=== PATIENT | female | born 1990 | race Caucasian/White ===

== ENCOUNTER → 2017-01-03 | Outpatient (CLI) | payer BC ==
[2017-01-03 13:51] LABS: Basophils % (A) 1 %; CHCM 33.8; Eosinophils # (A) 0.1 k/uL (0-0.7); Eosinophils % (A) 1 %; HCT 42.2 % (34.0-46.0); HDW 2.72; Luc # (Auto) 0.08; Luc % (Auto) 1; Lymphocytes # (A) 1.6 k/uL (1.0-4.8); Lymphocytes % (A) 26 %; MCH 29.6 pg (25.0-35.0); MCHC 33.1 g/dL (31.0-37.0); MCV 89.4 fL (80.0-100.0); Mean Platelet Volume 7.5; Monocytes # (A) 0.3 k/uL (0-1.0); Monocytes % (A) 5 %; Neutrophils # (A) 3.9 k/uL (1.3-7.7); Neutrophils % (A) 66 %; RBC 4.72 m/uL (3.80-5.40); RDW 13.8 % (11.5-15.5); WBC 5.9 k/uL (3.8-10.6); WBC (Perox) 6.09
== END | disposition home or self-care (01) ==
LOC: LABPAT 13:34
PROVIDERS: ATTEND Obstetrics & Gynecology
DX: Z01.812 Encounter for preprocedural laboratory examination (principal)
CPT/HCPCS: 85025

== ENCOUNTER 2017-01-09 06:35 | Day surgery (SDC) | payer BC ==
[2017-01-06 15:11] VITALS: BMI 24.0
--- NOTE | 2017-01-08 21:11 | P.HPOB ---
History of Present Illness H&P Date: 01/08/17 Chief Complaint: JULIETH-2 This is a 26-year-old female 0 para 0 who presents for loop electrocautery excision procedure with colposcopy due to JULIETH-2 on recent colposcopy. Her initial abnormal Pap smear was in March 2013 and showed atypical squamous cells of undetermined significance with positive high risk HPV. She underwent a colposcopy at that time that was negative. She had several subsequent Pap smears that showed atypical squamous cells of undetermined significance with positive high risk HPV. She underwent a recent colposcopy in November 2016 that showed JULIETH-2 on biopsy at 6 o'clock position. She is therefore consented to a loop electrocautery excision procedure with colposcopy to remove the abnormal cells. Obstetrical history: . Gynecologic history: History of gonorrhea treated in 2012. History of abnormal Pap smears. She is currently using condoms and oral contraceptives for control. Social history: She is single. She is currently a student at [employer]. She also works as a nanny. Review of Systems Constitutional: Denies chills, Denies fever Eyes: denies blurred vision, denies pain Ears, nose, mouth and throat: Denies headache, Denies sore throat Cardiovascular: Denies chest pain, Denies shortness of breath Respiratory: Denies cough Gastrointestinal: Denies abdominal pain, Denies diarrhea, Denies nausea, Denies vomiting Genitourinary: Denies dysuria, Denies hematuria Musculoskeletal: Reports low back pain Neurological: Reports syncope Psychiatric: Reports anxiety, Reports depression, Reports difficulty concentrating Endocrine: Reports fatigue Past Medical History Additional Past Medical History / Comment(s): POSTURAL ORTHOSTATIC TACHYCARDIA SYNDROME; arrhythmia History of Any Multi-Drug Resistant Organisms: None Reported Past Surgical History: Ear Surgery, Tonsillectomy Additional Past Surgical History / Comment(s): LEFT EAR SURGERY Past Anesthesia/Blood Transfusion Reactions: No Reported Reaction Additional Past Anesthesia/Blood Transfusion Reaction / Comment(s): PATIENT WAS ADOPTED UNKNOWN FAMILY HISTORY FOR ANESTHESIA Past Psychological History: ADD/ADHD, Anxiety, Depression Smoking Status: Never smoker Past Alcohol Use History: Occasional Past Drug Use History: None Reported - Past Family History Mother Family Medical History: No Reported History Additional Family Medical History / Comment(s): PATIENT WAS ADOPTED UNKNOWN HISTORY Medications and Allergies Home Medications Medication Instructions Recorded Confirmed Type Ibuprofen [Motrin] 400 mg PO Q8HR PRN 01/06/17 01/06/17 History Lisdexamfetamine Dimesylate 70 mg PO QAM 01/06/17 01/06/17 History [Vyvanse] Norgestimate-Ethinyl Estradiol 1 each PO DAILY 01/06/17 01/06/17 History [Femynor 28 Tablet] Allergies Allergy/AdvReac Type Severity Reaction Status Date / Time No Known Allergies Allergy Verified 01/06/17 14:33 Exam Osteopathic Statement: *. No significant issues noted on an osteopathic structural exam other than those noted in the History and Physical/Consult. HEENT: Within normal limits Heart: Regular rate and rhythm Lungs: Clear to auscultation bilaterally Abdomen: Soft, nontender Pelvic exam: Uterus is retroverted, and nontender, with no adnexal masses or tenderness noted Extremities: Negative Homans Assessment and Plan (1) JULIETH II (cervical intraepithelial neoplasia II) Status: Acute Plan: Proceed with loop electrocautery excision procedure with colposcopy. I have discussed the risks, benefits, and alternative therapies for the above- mentioned procedure and for both sedation/anesthesia as well as necessary blood products administration, if indicated, as they pertain to this patient. The patient has indicated her understanding and acceptance of the risks and procedures discussed.
[~2017-01-09 06:35] MED LIST: DEXAMETHASONE SOD PHOSPHATE 10 MG/ML 1 ML VIAL IV ONE; HYDROmorphone 1 MG/ML 1 ML SYRINGE IVP PRN; LACTATED RINGERS 1,000 ML IV SCH; ONDANSETRON 4 MG/2 ML VIAL IVP ONE; Pre Op ABX Message 1 EACH MISC MISCELLANE ONE
[2017-01-09] MEDS ORDERED: LIDOCAINE 1% 20 ML VIAL (10MG/ML) FOR IV START SQ ONE (07:26)
[2017-01-09] MEDS ORDERED: FERRIC SUBSULFATE (MONSELS) JAR TOPICAL ONE (07:38)
[2017-01-09] MEDS ORDERED: LIDOCAINE 1%-EPI 1:100,000 20 ML VIAL SQ ONE ×2 (07:39)
[2017-01-09] MEDS ORDERED: BUPIVACAINE (PF) 0.5% 30 ML VIAL SQ ONE ×2 (07:39)
[2017-01-09] MEDS ORDERED: PROPOFOL 10 MG/ML 20 ML VIAL IV ONE (07:40)
[2017-01-09] MEDS ORDERED: fentaNYL (PF) 50 MCG/ML 2 ML AMP ONE (07:40)
[2017-01-09] MEDS ORDERED: KETOROLAC 30 MG/ML 1 ML VIAL ONE (07:40)
[2017-01-09] MEDS ORDERED: MIDAZOLAM 2 MG/2 ML VIAL ONE (07:40)
[2017-01-09] MEDS ORDERED: ACETIC ACID 15 DROPS/ML DROPS MISCELLANE ONE (07:40)
[2017-01-09] MEDS ORDERED: LIDOCAINE 1% INJ 10MG/ML (20 ML MDV) ONE (07:40)
--- NOTE | 2017-01-09 08:18 | P.OP ---
Date of Procedure: 01/09/17 Preoperative Diagnosis: JULIETH-2 Postoperative Diagnosis: To be determined by pathology Procedure(s) Performed: Colposcopy with loop electrocautery excision procedure Implants: Anesthesia: JOHANNAA Surgeon: Selene Andrew Estimated Blood Loss (ml): 2 Pathology: other (Ectocervix with 12:00 marked with a stitch) Condition: stable Disposition: same day Indications for Procedure: This is a 26-year-old female 0 para 0 who presents for loop electrocautery excision procedure with colposcopy due to JULIETH-2 on recent colposcopy. Her initial abnormal Pap smear was in March 2013 and showed atypical squamous cells of undetermined significance with positive high risk HPV. She underwent a colposcopy at that time that was negative. She had several subsequent Pap smears that showed atypical squamous cells of undetermined significance with positive high risk HPV. She underwent a recent colposcopy in November 2016 that showed JULIETH-2 on biopsy at 6 o'clock position. She is therefore consented to a loop electrocautery excision procedure with colposcopy to remove the abnormal cells. Operative Findings: Transition zone is seen entirely. There is acetowhite and Lugol white areas on both the 12:00 and 6:00 border but no mosaicism seen. Description of Procedure: The patient is taken to the operating room where she is placed in the dorsal lithotomy position. She is prepped and draped in the normal sterile fashion. Bladder is drained with a catheter and then removed. A coated bivalve speculum was placed in the patient's vagina. The cervix is swabbed with acetic acid and the transition zone is seen entirely with no specific abnormalities other than acetowhite areas on both the 12 and 6:00 positions. Next the cervix is swabbed with Lugol solution the same areas are noted to be Lugol white. No shiny white epithelium is seen and no mosaicism was seen. Next the cervix was circumferentially injected with a 50-50 mixture of quarter percent Marcaine and 1% lidocaine with epinephrine. Approximately 8 mL are used with a spinal needle. Next a large loop was used with 35 W of cutting power to swipe from left to right to remove the entire transition zone. The specimen is labeled at the 12 o'clock position with a stitch. Next the ball-tipped cautery was used to cauterize the bed left behind. Excellent hemostasis was noted. Monsel solution was applied. Excellent hemostasis was again noted. All instruments are removed from the vagina. All sponge and needle counts are correct. The patient is then taken to recovery room in stable condition.
[2017-01-09 08:30] VITALS: TEMP 98.6
[2017-01-09 09:21] VITALS: BP 111/74; PULSE 55; RESP 18
== END 2017-01-09 09:34 | disposition home or self-care (01) ==
LOC: OR 06:35
PROVIDERS: ATTEND Obstetrics & Gynecology
DX: N87.1 Moderate cervical dysplasia (principal); F90.9 Attention-deficit hyperactivity disorder, unspecified type; F41.9 Anxiety disorder, unspecified; F32.9 Major depressive disorder, single episode, unspecified; Z79.3 Long term (current) use of hormonal contraceptives; Z79.899 Other long term (current) drug therapy
CPT/HCPCS: 57460; 81025; 88342; 88307; J2250; J1100; J2405; J2001; J3010; J1885; J2704